=== PATIENT | male | born 1980 | race African-American/Black ===

== ENCOUNTER 2018-11-06 14:24 | Emergency (ER) | payer MEDICAID ==
[~2018-11-06] VITALS: Ht 172.7 cm; Wt 86.2 kg
--- NOTE | 2018-11-06 14:33 | NUR ---
ED Nurse Note: Called patient. Patient not in waiting room.
[2018-11-06] MEDS ORDERED: NKM (14:42)
--- NOTE | 2018-11-06 14:53 | NUR ---
ED Nurse Note: PT WALKED IN DUE TO LOWER ABD. PAIN, NON RADIATING WTIH NAUSEA AND INTERMITTENT SOB X2-3DAYS. DENIES DIARRHEA OR FEVER. AAO X4, AMBULATORY FOLLOWS COMMANDS WITH VSS.
[2018-11-06] MEDS ORDERED: Albuterol/Ipratropium 3ml neb HHN ONE (15:15)
--- NOTE | 2018-11-06 15:21 | NUR ---
ED Nurse Note: RT AT THE BED SIDE FOR BREATHING TREATMENT.
[2018-11-06] MEDS ORDERED: ALBUTEROL SULF8.5 GM INH (15:54)
[2018-11-06] MEDS ORDERED: DICYCLOMINE HCL10 MG ORAL (15:54)
[2018-11-06 15:59] VITALS: BP 115/67
--- NOTE | 2018-11-06 15:59 | NUR ---
ER DISCHARGE NOTE: Patient is cleared to be discharged per ERMD, pt is aox4, on room air, with stable vital signs. pt was given dc and prescription instructions, pt was able to verbalize understanding, pt id band removed. pt is able to ambulate with steady gait. pt took all belongings.
--- NOTE | 2018-11-06 21:49 | Emergency Room Report ---
History of Present Illness General Chief Complaint: Abdominal Pain Source: Patient Present Illness HPI Patient is a 38-year-old male who presented after increased abdominal pain. Patient reports of increased generalized vague abdominal pain associated with some loosening of stools. He reports having some crampy abdominal pain. He states that he had been having some increased difficulty with breathing. He reports having prior history of asthma as a child. He denies any recent medication use. He reports being a smoker. He denies discolored productive cough. He reports having some increased clear phlegm Allergies: Coded Allergies: No Known Allergies (Unverified , 11/06/18) Patient History Past Medical History: see triage record Reviewed Nursing Documentation: PMH: Agreed; PSxH: Agreed Nursing Documentation-PMH Past Medical History: No Stated History Review of Systems All Other Systems: negative except mentioned in HPI Physical Exam Vital Signs Date Time Temp Pulse Resp B/P (MAP) Pulse Ox O2 Delivery O2 Flow Rate FiO2 11/06/18 14:43 98.4 94 16 97/53 (68) 97 Room Air 11/06/18 15:20 21 Sp02 EP Interpretation: reviewed, normal General Appearance: normal inspection, well appearing, no apparent distress, alert, GCS 15 Head: atraumatic ENT: normal ENT inspection, hearing grossly normal, normal voice Neck: normal inspection, full range of motion, supple, no bony tend Respiratory: normal inspection, lungs clear, normal breath sounds, no respiratory distress, no retraction, no wheezing Cardiovascular #1: regular rate, rhythm, no edema Gastrointestinal: normal inspection, normal bowel sounds, non tender, soft, no guarding, no hernia Genitourinary: no CVA tenderness Musculoskeletal: normal inspection, back normal, normal range of motion Neurologic: normal inspection, alert, oriented x3, responsive, interactive media marketing specialist III-XII nml as tested, speech normal Psychiatric: normal inspection, judgement/insight normal, mood/affect normal Skin: normal inspection, normal color, no rash Medical Decision Making Diagnostic Impression: Primary Impression: Asthma exacerbation ER Course Patient presented for difficulty breathing. Differential diagnosis include was not limited to asthma exacerbation, COPD, pneumonia among others. Patient has a benign exam and does not appear to require any further imaging or laboratory testing at this time patient is noted to have some wheezing on lung exam. He was given breathing treatment with improvement of symptoms. Patient said he felt better. Patient was given prescription for albuterol as well as medications for nonspecific abdominal pain. Patient appears to be stable for outpatient management. He was advised smoking cessation. He was advised to return if any worsening condition or other concerns. Last Vital Signs Date Time Temp Pulse Resp B/P (MAP) Pulse Ox O2 Delivery O2 Flow Rate FiO2 11/06/18 15:59 98.1 73 20 115/67 97 Room Air 11/06/18 15:28 21 Status: improved Disposition: HOME, SELF-CARE Condition: Stable Scripts Dicyclomine Hcl* (DICYCLOMINE HCL*) 10 Mg Capsule 10 MG ORAL QID, #20 CAP Prov: Laz Gr MD 11/06/18 Albuterol Sulfate* (ALBUTEROL SULFATE MDI*) 8.5 Gm Hfa.aer.ad 2 PUFF INH Q6H, #1 EA 0 Refills Prov: Laz Gr MD 11/06/18 Referrals: [facility],REFERRING (PCP) Patient Instructions: Asthma, Adult, Abdominal Pain, Adult Laz Gr MD Nov 06, 2018 21:49
== END 2018-11-06 15:59 | disposition home or self-care (01) ==
LOC: EMR 15:56
DX: J45.901 Unspecified asthma with (acute) exacerbation (principal); F17.200 Nicotine dependence, unspecified, uncomplicated
CPT/HCPCS: 94640; 94664; 99283; J7620

== ENCOUNTER 2018-11-18 01:02 | Emergency (ER) | payer MEDICAID ==
[~2018-11-18] VITALS: Ht 180.3 cm; Wt 86.2 kg
[~2018-11-18 01:02] MED LIST: ALBUTEROL SULF8.5 GM INH; DICYCLOMINE HCL10 MG ORAL; NKM
[2018-11-18 01:17] VITALS: BP 114/65
--- NOTE | 2018-11-18 01:18 | NUR ---
ED Nurse Note: Patient walked into ED c/o needing a breathing treatment, patient states that he was seen here a couple weeks ago and was given an inhaler however was not able to get a hold of one, states that hes having trouble breathin however is able to make full sentences. o2 sat at triage was 97%. patient is having expiratory wheezing
[2018-11-18] MEDS ORDERED: Albuterol/Ipratropium 3ml neb HHN ONE (01:30)
--- NOTE | 2018-11-18 01:31 | Emergency Room Report ---
History of Present Illness General Chief Complaint: Upper Respiratory Illness Source: Patient Present Illness HPI This is a 38-year-old male with a history of asthma as a kid. He smokes about 2 packs a day. He presents with chief complaint of wheezing shortness of breath. He was here almost 2 weeks ago for the same thing. Prescribed inhaler after getting a breathing treatment here. He never filled the prescription. He came in today because he said he is been increasing shortness of breath. [place] wheezing at times. Better with rest. No nausea no vomiting. Worse with smoking. No chest pain. No syncope. Allergies: Coded Allergies: No Known Allergies (Unverified , 11/06/18) Patient History Past Medical History: see triage record, old chart reviewed, asthma Past Surgical History: none Pertinent Family History: none Social History: Reports: smoking, alcohol use Immunizations: other Reviewed Nursing Documentation: PMH: Agreed; PSxH: Agreed Nursing Documentation-PM Past Medical History: No History, Except For Hx Asthma: Yes Review of Systems Eye: Denies: eye pain, blurred vision ENT: Denies: ear pain, nose congestion, throat swelling Respiratory: Reports: shortness of breath, wheezing; Denies: cough Cardiovascular: Denies: chest pain, palpitations Gastrointestinal: Denies: abdominal pain, diarrhea, nausea, vomiting Musculoskeletal: Denies: back pain, joint pain Skin: Denies: rash Neurological: Denies: headache, numbness Endocrine: Denies: increased thirst, increased urine Hematologic/Lymphatic: Denies: easy bruising All Other Systems: negative except mentioned in HPI Physical Exam Vital Signs Date Time Temp Pulse Resp B/P (MAP) Pulse Ox O2 Delivery O2 Flow Rate FiO2 11/18/18 01:06 98.4 97 18 114/65 (81) 96 Room Air Vitals normal Sp02 EP Interpretation: reviewed, normal General Appearance: well appearing, no apparent distress, alert, other - strong smell of alcoholic beverage on breath Head: normocephalic, atraumatic Eyes: bilateral eye PERRL, bilateral eye EOMI ENT: hearing grossly normal, normal pharynx Neck: full range of motion, supple, no meningismus Respiratory: chest non-tender, wheezing - SLight expiratory wheezing Cardiovascular #1: regular rate, rhythm, no murmur Gastrointestinal: normal bowel sounds, non tender, no mass, no organomegaly, no bruit, non-distended Musculoskeletal: back normal, gait/station normal, normal range of motion Psychiatric: mood/affect normal Medical Decision Making Diagnostic Impression: Primary Impression: Asthma exacerbation Qualified Codes: J45.21 - Mild intermittent asthma with (acute) exacerbation ER Course Patient presents with asthma exacerbation. Wheezing resolved after treatment. Will discharge home. Chest X-Ray Diagnostic Results Chest X-Ray Diagnostic Results : Chest X-Ray Ordered: Yes # of Views/Limited/Complete: 1 View Indication: Shortness of Breath EP Interpretation: Yes Interpretation: no consolidation, no effusion, no pneumothorax, no acute cardiopulmonary disease Impression: No acute disease Electronically Signed by: Fuentes Franco MD Last Vital Signs Date Time Temp Pulse Resp B/P (MAP) Pulse Ox O2 Delivery O2 Flow Rate FiO2 11/18/18 01:17 97 18 Room Air 11/18/18 01:17 98.4 114/65 96 Status: improved Disposition: HOME, SELF-CARE Condition: Stable Scripts Prednisone* (PREDNISONE*) 20 Mg Tablet 40 MG ORAL DAILY, #8 TAB Prov: Fuentes Franco MD 11/18/18 Albuterol Sulfate* (ALBUTEROL SULFATE MDI*) 8.5 Gm Hfa.aer.ad 2 PUFF INH Q4H PRN for cough/wheezing, #1 EA 0 Refills Prov: Fuentes Franco MD 11/18/18 Referrals: [facility]/,REFERRING (PCP) Additional Instructions: Follow-up with your doctor in 7 days. Stop smoking. Return if worse. Fuentes Franco MD Nov 18, 2018 01:31
[2018-11-18] MEDS ORDERED: PREDNISONE20 MG ORAL (02:08)
[2018-11-18] MEDS ORDERED: ALBUTEROL SULF8.5 GM INH (02:08)
--- NOTE | 2018-11-18 02:12 | NUR ---
ER DISCHARGE NOTE: Patient is cleared to be discharged per ERMD, pt is aox4, on room air, with stable vital signs. pt was given dc and prescription instructions, pt was able to verbalize understanding, pt id band removed without complications. pt is able to ambulate with steady gait. pt took all belongings.
[2018-11-18 02:13] VITALS: BP 120/72
--- NOTE | 2018-11-18 12:22 | Diagnostic Imaging Report ---
Indication: Dyspnea Comparison: None A single view chest radiograph was obtained. Findings: Cardiomediastinal appearance is within normal limits for age. The lungs are clear. Pulmonary vascularity is appropriate. The diaphragmatic contour is smooth and costophrenic angles are sharp. No pleural effusions are identified. The bones are unremarkable. Impression: No acute findings
== END 2018-11-18 02:13 | disposition home or self-care (01) ==
LOC: EMR 01:27
DX: J45.21 Mild intermittent asthma with (acute) exacerbation (principal); F17.200 Nicotine dependence, unspecified, uncomplicated
CPT/HCPCS: 71045; 94640; 94664; 99284; J7512; J7620

== ENCOUNTER 2019-05-10 14:59 | Emergency (ER) | payer MEDICAID ==
[~2019-05-10] VITALS: Ht 180.3 cm; Wt 81.6 kg
[~2019-05-10 14:59] MED LIST changes: +PREDNISONE20 MG ORAL
[2019-05-10 15:15] VITALS: BP 134/74
[2019-05-10 15:25] VITALS: BP 131/67
--- NOTE | 2019-05-10 15:31 | NUR ---
ED Nurse Note: Pt waled in from home c/o 02/25 pain and swelling on his penis and inguinal lymph nodes x 1 month. Per patient, penis looked like it had "scratches" on it. Respirations even and unlabored on room air. vital signs stable as documented
--- NOTE | 2019-05-10 15:32 | NUR ---
ED Nurse Note: voided urine sent to lab. pt awaiting betsy de jesus
[2019-05-10] MEDS ORDERED: cefTRIAXone 1 GM in NS 55 ML IVPB ONE (15:45)
[2019-05-10] MEDS ORDERED: Ketorolac 30mg Inj IV ONE (15:45)
[2019-05-10] MEDS ORDERED: Omnipaque-300 100ml vial INJ PRN (15:45)
[2019-05-10 15:46] LABS: APPEARANCE,URINE CLEAR; BILIRUBIN, URINE NEGATIVE (NEGATIVE); COLOR,URINE PALE YELLOW; GLUCOSE, URINE (UA) 1+ (NEGATIVE); KETONES,URINE NEGATIVE (NEGATIVE); LEUKOCYTE ESTERASE ,URINE NEGATIVE (NEGATIVE); NITRITE,URINE NEGATIVE (NEGATIVE); PH,URINE 6 (4.5-8.0); PROTEIN,URINE NEGATIVE (NEGATIVE); UROBILINOGEN,URINE NORMAL MG/DL (0.0-1.0)
[2019-05-10 16:33] LABS: BASOPHILS % (AUTO) 1.9 % (0.0-2.0); EOSINOPHILS % (AUTO) 1.1 % (0.0-3.0); HEMATOCRIT 39.6 % (42.0-52.0); HEMOGLOBIN 14.1 G/DL (14.2-18.0); LYMPHOCYTES % (AUTO) 28.1 % (20.0-45.0); MEAN CORPUSCULAR VOLUME 91 FL (80-99); PLATELET COUNT 193 K/UL (150-450); RED BLOOD COUNT 4.33 M/UL (4.70-6.10); WHITE BLOOD COUNT 5.6 K/UL (4.8-10.8)
[2019-05-10 17:05] LABS: ANION GAP 9 mmol/L (5-15); BLOOD UREA NITROGEN 8 mg/dL (7-18); CALCIUM 9.1 MG/DL (8.5-10.1); CARBON DIOXIDE 29 MMOL/L (21-32); CHLORIDE 102 MMOL/L (98-107); CREATININE 1.1 MG/DL (0.55-1.30); POTASSIUM 3.6 MMOL/L (3.5-5.1); SODIUM 140 MMOL/L (136-145)
[2019-05-10 17:10] LABS: ALANINE AMINOTRANSFERASE 24 U/L (12-78); ALBUMIN 3.5 G/DL (3.4-5.0); ALBUMIN/GLOBULIN RATIO 0.8 (1.0-2.7); ALKALINE PHOSPHATASE 91 U/L (46-116); ASPARTATE AMINO TRANSFERASE 27 U/L (15-37); BILIRUBIN,TOTAL 0.2 MG/DL (0.2-1.0)
--- NOTE | 2019-05-10 17:26 | NUR ---
ED Nurse Note: Pt to radiology
--- NOTE | 2019-05-10 17:38 | NUR ---
ED Nurse Note: Pt back from CT
--- NOTE | 2019-05-10 18:03 | Diagnostic Imaging Report ---
INDICATION: Abdominal pain TECHNIQUE: Continuous helical transaxial imaging of the abdomen and pelvis was obtained from the lung bases to the pubic symphysis during intravenous contrast administration. Coronal 2-D reformats were also obtained. Study obtained in a Siemens sensation [address] Automatic Exposure Control was utilized. Total Dose length Product (DLP): 1085.[address] Dose Index Volume (CTDIvol): 17.6 mGy COMPARISON: None FINDINGS: Lungs: The visualized lung bases are clear. Liver: Tiny hypodensity in the lateral segment the left lobe is too small to characterize on this examination. Focal fat noted near the falciform ligament. Gallbladder/biliary system: The gallbladder is contracted. There is no biliary ductal dilatation identified.. Spleen: Unremarkable Pancreas: Unremarkable Kidneys: No hydronephrosis identified. Both kidneys enhance symmetrically.. Adrenal glands: Unremarkable Aorta/IVC: Unremarkable Bowel: There is no evidence of bowel obstruction. Bladder: Unremarkable Peritoneum: There is no free fluid. There is evidence of inguinal lymphadenopathy bilaterally worse on the right measuring up to 2 cm. There are also external iliac nodes measuring up to 3.6 x 2 cm. Bones: Unremarkable IMPRESSION: Inguinal/iliac lymphadenopathy. Inflammatory versus neoplastic. Further clinical workup needed. [facility] has communicated the preliminary results to the Emergency Department. Their findings are largely concordant with this report. The CT scanner at [facility] is accredited by the [employer] and the scans are performed using dose optimization techniques as appropriate to a performed exam including Automatic Exposure control.
--- NOTE | 2019-05-10 18:30 | NUR ---
ED Nurse Note: urine sent to lab Addendum: 05/10/19 at 1830 by BRET WRONG PATIENT
--- NOTE | 2019-05-10 18:50 | Emergency Room Report ---
History of Present Illness General Chief Complaint: Male Urogenital Problems Source: Patient Present Illness HPI 38-year-old male with history of heavy tobacco smoke here complaining of 1 month of pain and a mass in her right suprapubic area. Patient reports that he has been able to reduce it in work, also complains of 1month penile swelling that started after being sexually active with a new partner. Denies any penile discharge, urinary frequency and urgency. Obvious infection and swelling of the penile gland noted. Denies scrotal swelling and pain. Denies trauma to the area, diffuse abdominal pain, nausea vomiting, headache and dizziness. Complains of moderate fever and chills in the past few days. Denies chest pain , shortness of breath, palpitation, no other associated symptoms. Patient is uncircumcised unable to retract however both difficulty. No paraphimosis or phimosis noted. Allergies: Coded Allergies: No Known Allergies (Unverified , 11/06/18) Patient History Past Medical History: see triage record Past Surgical History: unable to obtain Pertinent Family History: none Social History: Reports: smoking Immunizations: UTD Reviewed Nursing Documentation: PMH: Agreed; PSxH: Agreed Nursing Documentation-PMH Hx Asthma: Yes Review of Systems All Other Systems: negative except mentioned in HPI Physical Exam Vital Signs Date Time Temp Pulse Resp B/P (MAP) Pulse Ox O2 Delivery O2 Flow Rate FiO2 05/10/19 15:09 97.9 74 19 131/67 (88) 100 Room Air Sp02 EP Interpretation: reviewed, normal General Appearance: no apparent distress, alert, GCS 15, non-toxic Head: normocephalic, atraumatic Eyes: bilateral eye normal inspection, bilateral eye PERRL ENT: hearing grossly normal, normal pharynx, no angioedema, normal voice Neck: full range of motion, supple/symm/no masses Respiratory: chest non-tender, lungs clear, normal breath sounds, no rhonchi, no retraction, no wheezing, speaking full sentences Cardiovascular #1: regular rate, rhythm, no edema, no murmur Gastrointestinal: normal bowel sounds, non tender, soft, non-distended, no guarding, no rebound, hernia - Right-sided reducible inguinal hernia Rectal: deferred Genitourinary: no CVA tenderness, scrotum normal, other - Penile swelling, with obvious infection around the penile glan Musculoskeletal: back normal, normal range of motion, digits/nails normal, no calf tenderness Neurologic: alert, motor strength/tone normal, oriented x3, sensory intact, responsive, speech normal Psychiatric: judgement/insight normal, memory normal, mood/affect normal, no suicidal/homicidal ideation Skin: no rash Lymphatic: inguinal node tender (R) Medical Decision Making PA Attestation Diagnosis and treatment plans were reviewed and discussed with my supervising physician Dr. Rivera Diagnostic Impression: Primary Impression: Inguinal hernia Additional Impression: Infection of penis ER Course 38-year-old male with history of heavy tobacco smoke here complaining of 1 month of pain and a mass in her right suprapubic area. Patient reports that he has been able to reduce it in work, also complains of 1month penile swelling that started after being sexually active with a new partner. Denies any penile discharge, urinary frequency and urgency. Obvious infection and swelling of the penile gland noted. Denies scrotal swelling and pain. Denies trauma to the area, diffuse abdominal pain, nausea vomiting, headache and dizziness. Complains of moderate fever and chills in the past few days. Denies chest pain , shortness of breath, palpitation, no other associated symptoms. Patient is uncircumcised unable to retract however both difficulty. No paraphimosis or phimosis noted. Ddx considered but are not limited to: Incarcerated inguinal hernia, nonreducible inguinal hernia, reducible inguinal hernia, phimosis, paraphimosis , cellulitis, infected balanitis, exposure to STD, appendicitis, Vital signs: are WNL, pt. is afebrile H&PE are most consistent with: Infected balanitis, inguinal area reducible ORDERS: abdominal CT, abdominal pain set, EKG, doxycycline, Keflex, ibuprofen ED INTERVENTIONS: NS bolus, Toradol, Rocephin DISCHARGE: At this time pt. is stable for d/c to home. Will provide printed patient care instructions, and any necessary prescriptions. Care plan and follow up instructions have been discussed with the patient prior to discharge. Patient follow with primary care provider, referral to urologist neurology referral to general surgeon needed if nonreducible hernia and signs of incarceration return to the emergency room immediately EKG Diagnostic Results Rate: normal Rhythm: NSR ST Segments: no acute changes CT/MRI/US Diagnostic Results CT/MRI/US Diagnostic Results : Imaging Test Ordered: CT abd pelvis with contrast Impression Dependent atelectasis. Liver, gallbladder, spleen, pancreas and adrenal glands are unremarkable. Kidneys, ureters and urinary bladder unremarkable. Enlarged inguinal and iliac lymph nodes which may be reactive. Metastatic disease or lymphoproliferative process is not excluded. Appendix is unremarkable. Bowel is unremarkable. No free fluid. No free air. No acute osseous abnormality. Last Vital Signs Date Time Temp Pulse Resp B/P (MAP) Pulse Ox O2 Delivery O2 Flow Rate FiO2 05/10/19 15:25 97.9 74 19 131/67 100 Room Air Disposition: HOME, SELF-CARE Condition: Stable Scripts Ibuprofen (Ibu) 800 Mg Tablet 800 MG PO TID, #30 TAB Prov: Annmarie Araya 05/10/19 Cephalexin* (KEFLEX*) 500 Mg Capsule 500 MG ORAL EVERY 6 HOURS for 7 Days, #28 CAP Prov: Annmarie Araya 05/10/19 Doxycycline Hyclate* (VIBRAMYCIN*) 100 Mg Capsule 100 MG ORAL EVERY 12 HOURS for 7 Days, #14 CAP 0 Refills Prov: Annmarie Araya 05/10/19 Referrals: [facility] BENAVIDEZ,REFERRING (PCP) Patient Instructions: Balanitis, Inguinal Hernia, Adult, [id number] Additional Instructions: Take medication as directed, follow-up with your primary care provider, you may need to be seen by a urologist to be requested by your primary care provider. If worsening symptoms return to the emergency room Annmarie Araya May 10, 2019 18:50
[2019-05-10] MEDS ORDERED: VIBRAMYCIN100 MG ORAL (18:52)
[2019-05-10] MEDS ORDERED: IBU800 MG PO (18:52)
[2019-05-10] MEDS ORDERED: CEPHALEXIN500 MG ORAL (18:52)
[2019-05-10 19:04] VITALS: BP 125/69
--- NOTE | 2019-05-10 19:04 | NUR ---
ER DISCHARGE NOTE:Patient is cleared to be discharged per ERMD, pt is aox4, on room air, with stable vital signs as documented. pt was given dc and prescription instructions, pt was able to verbalize understanding, pt id band and iv site removed without complications. pt is able to ambulate with steady gait. pt took all belongings.
== END 2019-05-10 19:04 | disposition home or self-care (01) ==
LOC: EMR 15:30
DX: K40.90 Unilateral inguinal hernia, without obstruction or gangrene, not specified as recurrent (principal); N48.29 Other inflammatory disorders of penis; Z87.891 Personal history of nicotine dependence
CPT/HCPCS: 36415; 74177; 80053; 81003; 85025; 85610; 85730; 96365; 96375; J0696; J1885; J7030; Q9967; Z7502; 99284

== ENCOUNTER 2019-06-30 22:17 | Emergency (ER) | payer MEDICAID ==
[~2019-06-30] VITALS: Ht 180.3 cm; Wt 83.9 kg
[~2019-06-30 22:17] MED LIST changes: +CEPHALEXIN500 MG ORAL; +IBU800 MG PO; +VIBRAMYCIN100 MG ORAL
--- NOTE | 2019-06-30 22:20 | NUR ---
ED Nurse Note: PT walked in to ED for C/O pain in abd x couple of weeks. pt reports having intermittent n/v. pt admits to drinking alcohol often.
[2019-06-30 22:27] VITALS: BP 117/79
--- NOTE | 2019-06-30 22:27 | NUR ---
ED Nurse note: BP: 119/79
--- NOTE | 2019-06-30 22:49 | NUR ---
ED Nurse Note: PT connected to hearing aid technician, VSS at this time
--- NOTE | 2019-06-30 22:50 | NUR ---
ED Nurse Note: pt received from JAMEE Levi. pt reports that he has had a decreased appetite for a "few weeks" his pain is diffusely over his abd, pt denies radiation of pain to the back. pt states that he drinks coffee every morning for work but has not been able to hold it down. he also reports drinking "a few shots" and "a few beers" every night
[2019-06-30] MEDS ORDERED: Azithromycin 250mg tab ORAL ONE (23:15)
[2019-06-30] MEDS ORDERED: Lidocaine 1% MPF 10mg/ml 5ml INJ ONE (23:15)
[2019-06-30 23:20] VITALS: BP_SYST 126; BP_SYST 136; BP_DIAS 74
[2019-06-30] MEDS ORDERED: DOXYCYCLINE MO100 MG ORAL (23:28)
[2019-06-30] MEDS ORDERED: PRILOSEC OTC20 MG ORAL (23:28)
--- NOTE | 2019-06-30 23:29 | Emergency Room Report ---
History of Present Illness General Chief Complaint: Abdominal Pain Source: Patient Present Illness HPI This is a 38-year-old male with a history of H. pylori infection. He presents with 2 complaints. The first complaint is that he get epigastric pain and nausea after eating. He said he drinks a lot of coffee and smoke. He normally does not eat in the morning and when he eats, he feels some gnawing pain in that area. When he was in retirement he had endoscopy which confirmed H. pylori. He was put on antibiotics and proton pump inhibitor and it got better. Now is getting the same thing back again. No nausea no vomiting. No fever chills. No abdominal pain. A second complaint is inguinal adenopathy. Is to the right side. He had this problem before. He was here in April and had a CT scan was negative. Urinalysis was negative. He was discharged home but never had any follow-up. Denies any discharge. He is sexually active with unprotected sex. Has multiple partners. Allergies: Coded Allergies: No Known Allergies (Unverified , 11/06/18) Patient History Past Medical History: see triage record, old chart reviewed Past Surgical History: none Pertinent Family History: none Social History: Reports: smoking Immunizations: other Reviewed Nursing Documentation: PMH: Agreed; PSxH: Agreed Nursing Documentation-PMH Past Medical History: No Stated History Hx Asthma: Yes Review of Systems Eye: Denies: eye pain, blurred vision ENT: Denies: ear pain, nose congestion, throat swelling Respiratory: Denies: cough, shortness of breath Cardiovascular: Denies: chest pain, palpitations Gastrointestinal: Reports: abdominal pain; Denies: diarrhea, nausea, vomiting Musculoskeletal: Denies: back pain, joint pain Skin: Denies: rash Neurological: Denies: headache, numbness Endocrine: Denies: increased thirst, increased urine Hematologic/Lymphatic: Denies: easy bruising All Other Systems: negative except mentioned in HPI Physical Exam Vital Signs Date Time Temp Pulse Resp B/P (MAP) Pulse Ox O2 Delivery O2 Flow Rate FiO2 06/30/19 22:19 98.4 77 19 212/78 (122) 98 Room Air Vitals normal except for high blood pressure, repeat was normal Sp02 EP Interpretation: reviewed, normal General Appearance: well appearing, no apparent distress, alert Head: normocephalic, atraumatic Eyes: bilateral eye PERRL, bilateral eye EOMI ENT: hearing grossly normal, normal pharynx Neck: full range of motion, supple, no meningismus Respiratory: chest non-tender, lungs clear, normal breath sounds Cardiovascular #1: regular rate, rhythm, no murmur Gastrointestinal: normal bowel sounds, non tender, no mass, no organomegaly, no bruit, non-distended Genitourinary: other - Patient is uncircumcised. No discharge. He has nontender large b/l inguinal adenopathy. Musculoskeletal: back normal, normal range of motion, gait/station normal Psychiatric: mood/affect normal Medical Decision Making Diagnostic Impression: Primary Impression: Peptic ulcer disease Additional Impression: Inguinal adenopathy ER Course Patient with symptom consistent with peptic ulcer disease. We will put him back on proton pump inhibitor. I see no evidence of acute abdomen. His second complaint is inguinal adenopathy. There is a urethritis or other STD. Could be neoplastic process. Will go and put him on antibiotics. I gave him a dose of Rocephin and azithromycin here. Will add doxycycline. Recommend outpatient follow-up for biopsy. Last Vital Signs Date Time Temp Pulse Resp B/P (MAP) Pulse Ox O2 Delivery O2 Flow Rate FiO2 06/30/19 22:27 98.4 71 19 117/79 98 Room Air Status: improved Disposition: HOME, SELF-CARE Scripts Omeprazole Magnesium (PRILOSEC OTC) 20 Mg Tablet. 20 MG ORAL DAILY, #30 TAB Prov: Fuentes Franco MD 06/30/19 Doxycycline Monohydrate* (DOXYCYCLINE MONOHYDRATE*) 100 Mg Capsule 100 MG ORAL Q12H, #14 CAP 0 Refills Prov: Fuentes Franco MD 06/30/19 [address]errals: [facility],REFERRING (PCP) Additional Instructions: Follow-up with your doctor in 7 days. Recommend outpatient testing for HIV, hepatitis, syphilis and other STDs. If lymph nodes are still swollen after antibiotics, you may need biopsy to rule out tumors. Return if worse. Fuentes Franco MD Jun 30, 2019 23:28
[2019-06-30 23:33] VITALS: BP 126/74
--- NOTE | 2019-06-30 23:33 | NUR ---
ED Nurse Note: Pt cleared by health care Provider for discharge. DC instructions/prescription were given and explained to pt who verbalized understanding of teachings. All medical devices such as ID band removed. Pt is AAO x4, ambulatory and left with all personal belongings.
== END 2019-06-30 23:33 | disposition home or self-care (01) ==
LOC: EMR 23:16
DX: K27.9 Peptic ulcer, site unspecified, unspecified as acute or chronic, without hemorrhage or perforation (principal); R59.0 Localized enlarged lymph nodes; J45.909 Unspecified asthma, uncomplicated; F17.200 Nicotine dependence, unspecified, uncomplicated
CPT/HCPCS: 96372; 96374; J0696; Q0144; Z7502; 99284

== ENCOUNTER 2020-05-02 22:25 | Emergency (ER) | payer MEDICAID ==
[~2020-05-02] VITALS: Ht 180.3 cm; Wt 86.2 kg
[~2020-05-02 22:25] MED LIST changes: +DOXYCYCLINE MO100 MG ORAL; +PRILOSEC OTC20 MG ORAL
[2020-05-02 22:40] VITALS: BP 136/92
--- NOTE | 2020-05-02 22:50 | NUR ---
ED Nurse Note: Patient walked into ED c/o whitish penile discharge onset for the past 2 weeks now, patient reports of having unprotected sex with a woman that was diagnosed with a yeast infection, he then began noticing whitish discharge from the penile area accompanied by dryness and irritation. patient does report of getting covid tested every month for his work. patient is alert and oriented x4, ambulatory with a steady gait, VSS
[2020-05-02] MEDS ORDERED: Azithromycin 250mg tab ORAL ONE (23:00)
[2020-05-02] MEDS ORDERED: Lidocaine 1% MPF 10mg/ml 5ml INJ ONE (23:00)
--- NOTE | 2020-05-02 23:00 | Emergency Room Report ---
History of Present Illness General Chief Complaint: Male Urogenital Problems Source: Patient Present Illness [facility] This is a 39-year-old male with history of asthma. He presents with chief plaint penile discharge. Onset for about a week now. He said he has unprotected sex with this ex-girlfriend. He started having discharge and dysuria 3 days later. He said the discharge is clearish to whitish in nature. Worse with urination. No other complaint. 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 COVID-19 Screening: Negative COVID-19 COVID-19 Testing Source: unk Patient History Past Medical History: see triage record, old chart reviewed, asthma Past Surgical History: none Pertinent Family History: none Social History: Denies: smoking Immunizations: other Reviewed Nursing Documentation: PMH: Agreed; PSxH: Agreed Nursing Documentation-PMH Past Medical History: No History, Except For Hx Asthma: Yes Review of Systems Eye: Denies: eye pain, blurred vision ENT: Denies: ear pain, nose congestion, throat swelling Respiratory: Denies: cough, shortness of breath Cardiovascular: Denies: chest pain, palpitations Gastrointestinal: Denies: abdominal pain, diarrhea, nausea, vomiting Genitourinary: Reports: discharge, dysuria Musculoskeletal: Denies: back pain, joint pain Skin: Denies: rash Neurological: Denies: headache, numbness Endocrine: Denies: increased thirst, increased urine Hematologic/Lymphatic: Denies: easy bruising All Other Systems: negative except mentioned in HPI Physical Exam Vital Signs Date Time Temp Pulse Resp B/P (MAP) Pulse Ox O2 Delivery O2 Flow Rate FiO2 05/02/20 22:34 98.1 82 18 136/92 (107) 97 Room Air Vitals unremarkable Sp02 EP Interpretation: reviewed, normal General Appearance: well appearing, no apparent distress, alert Head: normocephalic, atraumatic Eyes: bilateral eye PERRL, bilateral eye EOMI ENT: hearing grossly normal, normal pharynx Neck: full range of motion, supple, no meningismus Respiratory: chest non-tender, lungs clear, normal breath sounds Cardiovascular #1: regular rate, rhythm, no murmur Gastrointestinal: normal bowel sounds, non tender, no mass, no organomegaly, no bruit, non-distended Genitourinary: other - Irritation to foreskin. Clearish discharge. Musculoskeletal: back normal, normal range of motion, gait/station normal Psychiatric: mood/affect normal Medical Decision Making Diagnostic Impression: Primary Impression: Urethritis ER Course Patient presents with acute urethritis. Most likely chlamydia. Will treat for gonorrhea also. Recommend outpatient testing for HIV, hepatitis, syphilis and other STDs. Last Vital Signs Date Time Temp Pulse Resp B/P (MAP) Pulse Ox O2 Delivery O2 Flow Rate FiO2 05/02/20 22:40 98.1 86 18 136/92 97 Room Air Status: improved Disposition: HOME, SELF-CARE Condition: Stable Referrals: [facility],REFERRING (PCP) Patient Instructions: Urethritis, Adult Additional Instructions: Follow-up with your doctor in 7 days. Recommend outpatient testing for HIV, hepatitis, syphilis and other STDs. Return if symptoms worsen. Fuentes Franco MD May 02, 2020 23:00
[2020-05-02 23:15] VITALS: BP 136/92
--- NOTE | 2020-05-02 23:15 | NUR ---
ER DISCHARGE NOTE: Patient is cleared to be discharged per ERMD, pt is aox4, on room air, with stable vital signs. pt was given dc instructions, pt was able to verbalize understanding, pt id band removed. pt is able to ambulate with steady gait. pt took all belongings.
== END 2020-05-02 23:15 | disposition home or self-care (01) ==
LOC: EMR 22:45
DX: N34.2 Other urethritis (principal); J45.909 Unspecified asthma, uncomplicated
CPT/HCPCS: 96372; J0696; Q0144; Z7502; 99283